=== PATIENT | female | born 1945 | race Two or more races ===

== ENCOUNTER 2019-04-30 08:06 | Outpatient (CLI) | payer OTHER | END 2019-04-30 08:10 | disposition home or self-care (01) | LOC: SONOGRAMA 08:06 | DX: E04.1 Nontoxic single thyroid nodule (principal) ==

== ENCOUNTER 2019-06-20 08:29 | Outpatient (CLI) | payer OTHER | END 2019-06-20 08:34 | disposition home or self-care (01) | LOC: SONOGRAMA 08:29 | DX: E04.1 Nontoxic single thyroid nodule (principal) ==